=== PATIENT | male | born 1990 | race Caucasian/White ===

== ENCOUNTER 2017-04-15 16:14 | Outpatient (CLI) | payer BC ==
--- NOTE | 2017-04-15 16:54 | DIAGNOSTIC IMAGING REPORT ---
PROCEDURE: XR RIBS UNILATERAL - RIGHT INDICATION: FALL TECHNIQUE: Four views of the right ribs COMPARISON: None. FINDINGS: RIGHT RIBS: No displaced rib fractures. No suspicious rib lesions. IMPRESSION: 1. Intact right ribs.
== END 2017-04-15 23:00 | disposition home or self-care (01) ==
LOC: XR SRH 16:14
DX: R07.81 Pleurodynia (principal)